=== PATIENT | female | born 1975 | race Caucasian/White ===

== ENCOUNTER 2017-01-16 23:36 | Emergency (ER) | payer SELFPAY ==
[~2017-01-16] VITALS: Ht 167.6 cm; Wt 101.8 kg
[~2017-01-16 23:36] MED LIST: AMOX/K CLAV500 MG PO; AMOXICILLIN/CL875 MG OR; AMOXICILLIN/CL875 MG PO; ARMOUR THYROID15 MG PO; AUGMENTIN500TAB PO; AUGMENTIN875TAB OR; AUGMENTIN875TAB PO; AZITHROMYCIN250 MG PO; BENTYL10 MG PO; CARAFATE PO; CIPRODEX1 ML OT; CIPROFLOXACN500 MG PO; CLARITHROMYC500 M1 PO; CLARITIN-D1 TA2 PO; COQ10100 MG PO; DEPO-MEDROL80 MG/ML IM; DIFLUCAN150 MG OR; DIFLUCAN150 MG PO; DOXY-CAPS100 MG OR; FLEXERIL5 M1 PO; FLONASE NASAL50 MCG; FLOVENT HFA44 MCG IN; FLUOXETINE10 M2 PO; FLUOXETINE20 MG PO; HYDROCHLOROT25 MG PO; KLS OMEPRAZOLE20 MG PO; LEVAQUIN500 MG PO; LOMOTIL2.5 MG OR; MAGNESIUM OXID400 M1 PO; MEDDOSEPAK PO; METFORMIN500 MG PO; NAPROSYN500 MG OR; NAPROSYN500 MG PO; NAPROXEN SOD220 M3 PO; NAPROXEN500 MG PO; NASONEX50 MCG/AC; NORCO1 TA1 PO; OMEPRAZOLE20 MG PO; PROBIOTI3 PO; PROCHIEVE4 % TOP; PROGESTERON TOP; PROTONIX40 M2 PO; PROVENTIL HFA IN; PROZAC10 MG PO; ROBITUSSIN AC10 ML PO; ROCEPHIN 1 GM1 GM IM; SINGULAIR PO; SYMBICORT 160-4.5MCG INH; TOPAMAX25 MG PO; WELLBUTRIN150 M1 PO; WELLBUTRIN150 M2 PO; ZOFRAN ODT8 MG OR; ZYRTEC-D AL1 OR
[2017-01-17 00:29] LABS: HEMATOCRIT 45.3 % (37.0-47.0); IMMATURE GRANULOCYTES 0.4 % (0.0-1.0); MEAN CELL VOLUME 81.5 fL CALC (80.0-100.0); MEAN CORPUSCULAR HGB 28.8 pG CALC (26.0-32.0); MEAN CORPUSCULAR HGB CONC 35.3 g/L CALC (32.0-36.0); NEUT# 8.6 thou/uL (2.00-7.15); RED BLOOD COUNT 5.56 mill/uL (4.20-5.60); RED CELL DISTRI WIDTH 13.1 % (11.5-15.5)
[2017-01-17 00:43] LABS: BILIRUBIN, TOTAL 1.1 mg/dL (0.0-1.4); CREATININE 1.2 mg/dL (0.5-1.0); POTASSIUM 4.4 mmol/l (3.5-5.1); TOTAL PROTEIN 8.4 g/dL (6.3-8.2)
[2017-01-17 02:04] LABS: URINE BILIRUBIN - DIPSTICK NEGATIVE (NEGATIVE); URINE BLOOD DIPSTICK TRACE-LYSED (NEGATIVE); URINE CLARITY SLIGHT CLOUDY; URINE COLOR YELLOW; URINE GLUCOSE - DIPSTICK NEGATIVE (NEGATIVE); URINE KETONE NEGATIVE (NEGATIVE); URINE LEUK ESTERASE NEGATIVE (NEGATIVE); URINE NITRITE - DIPSTICK NEGATIVE (Negative); URINE PROTEIN - DIPSTICK NEGATIVE (NEG-TRACE); URINE SPECIFIC GRAVITY 1.015; URINE UROBILINOGEN - DIPSTICK 0.2 E.U./dL (0.2)
[2017-01-17] MEDS ORDERED: CIPROFLOXACN500 MG PO (03:16)
[2017-01-17] MEDS ORDERED: ZOFRAN ODT4 MG PO (03:16)
[2017-01-17 03:25] VITALS: BP 123/74
== END 2017-01-17 03:25 | disposition home or self-care (01) | DRG 392 ==
LOC: ED 23:36
PROVIDERS: Emergency Medicine
DX: K52.9 Noninfective gastroenteritis and colitis, unspecified (principal); R50.9 Fever, unspecified; R11.2 Nausea with vomiting, unspecified; R10.13 Epigastric pain
CPT/HCPCS: S0164